=== PATIENT | female | born 1965 | race Caucasian/White ===

== ENCOUNTER 2024-04-19 08:25 | Emergency (ER) | payer OTHER, SELFPAY ==
[2024-04-19 08:29] VITALS: BP 125/77
--- NOTE | 2024-04-19 10:27 | ED.GENMED ---
History of Present Illness
General
Chief Complaint: Abdominal Pain
Source: patient
Exam Limitations: none
Time Seen by Provider: 04/19/24 10:27
Nursing documentation reviewed up to this point in time: agreed with
History of Present Illness
History of Present Illness:
58 y/oF with h/o diverticulitis previous x 1 episode treated with abx
here with mild stool changes over the past 1 week, looser, floating, nonbloody stools
and then started hving LLQ pain 3 days ago similar to previous divertic
worse with bending over an dmovement
no fever/chills/nausea/vomiting/diarrhea
no urinary sypmtoms
nothing taken for pain
Past History
Past History
ED Past Medical History: GERD and HTN
ED Past Surgical History: Gynecological
Social History
Tobacco: Non-smoker
Alcohol: None
Drug: None
Personal:
Living: with family
Phy Exam
Physical Exam
Physical Exam:
GENERAL: Alert , in no apparent distress, very comfortable and well-appearing
EYE: pupils equal and reactive
NECK: Supple
ENT: o/p clr, mmm.
CARDIAC: Regular rate and rhythm .
LUNGS: Clear breath sounds bilaterally, no acute respiratory distress, no wheezes/rales/rhonchi
ABDOMEN: Soft, mild left lower quad tendenress, no r/g, no cvat, normal bowel sounds
NEUROLOGICAL: Alert and oriented, no focal neuro deficits
SKIN: Warm and dry, skin intact.
MUSCULOSKELETAL: No edema, well perfused.
PSYCH: Normal and appropriate interaction.
Course
Orders/Labs/Results
Orders:
Orders
04/19/24 08:51
IV Insert/Care/Rem.- Treatment PRN
04/19/24 10:36
CT Abd/Pel (IV only)-DH only Urgent
Comment:
Reason For Exam: llq pain, hh/o divertic
0.9% Sodium Chloride 1000 ml [Nss] 1,000 ml IV BOLUS
04/19/24 10:58
Complete Blood Count/With Diff Urgent
Comprehensive Metabolic Panel Urgent
Lipase Urgent
04/19/24 12:13
Urinalysis Reflex To Culture Urgent
Date Specimen was Collected: 04/19/24
Time Specimen was Collected: 12:09
Abnormal Lab Results
04/19/24
10:58
Lymphocytes % 15.8 L %
(20.5-51.1)
Carbon Dioxide 31 H mmol/L
(22-30)
Glucose 103 H mg/dl
(70-99)
04/19/24 10:58
04/19/24 10:58
Vital Signs
Initial and Last Documented VS:
Initial Vital Signs
Temp Pulse Resp BP Pulse Ox
98.1 F 77 18 125/77 98
04/19/24 08:29 04/19/24 08:29 04/19/24 08:29 04/19/24 08:29 04/19/24 08:29
Last Documented Vital Signs
Temp Pulse Resp BP Pulse Ox
98.5 F 80 18 138/84 98
04/19/24 15:10 04/19/24 15:10 04/19/24 15:10 04/19/24 15:10 04/19/24 15:10
MDM/Problems Addressed
Differential Diagnosis Includes:
diverticulitis, gas pain, uti
MDM/Problems Addressed:
58 y/o F
h/o uncomplicated divertic in the past
has had some gradual stool changes x 1-2 weeks, looser
then pain 3 days ago
mild
tried clears yesterday but pain not improving
has had augmentin previously but vmoited and then doesn't like flagyl either
labs appreciated
ct scan uncopmlicated divertic
pain controlled
pt would like to go home and try augmentin again
doesn't want to do cipro/fagyl
will call if she doesn't tolerate.
*Critical Care Note
Total Time (30-74mins, 75-104mins- exclusive of procedures): Not Applicable
ED Attending Note
-
Portions of this chart may have been created with voice recognition software.� Occasional wrong word or��sound alike� substitutions may have occurred due to the inherent limitations of voice recognition software.
Discharge Plan
Departure
Patient Disposition: Home (Routine Discharge)
Date of Disposition: 04/19/24
Time of Disposition: 15:00
Patient with high blood pressure during this ER visit?: No
Condition: Fair
Covid-19: Not Applicable
Discharge Problem:
Diverticulitis
Instructions: Clear Liquid Diet, Diverticulitis (DC)
Prescriptions:
New
amoxicillin-pot clavulanate 875-125 mg tablet
1 tab PO Q12H Qty: 14 0RF
ondansetron 4 mg tablet,disintegrating
4 mg PO Q8H PRN (Reason: nausea and vomiting) 3 Days Qty: 10 0RF
No Action
omeprazole 20 MG capsule,delayed release(DR/EC)
20 mg PO PRN PRN (Reason: reflux)
famotidine 20 mg Tablet
20 mg PO PRN PRN (Reason: reflux)
triamterene-hydrochlorothiazid 37.5-25 mg Tablet
1 tab PO DAILY
Probiotic
1 cap PO DAILY
Referrals:
Nirav Rowe MD [Family Provider] - Follow up in 2-3 days
Activity Restrictions/Additional Instructions:
YOUR CAT SCAN SHOWS MILD DIVERTICULITIS
YOU SHOULD EAT A CLEAR LIQUID DIET FOR 24-48 HOURS TO GIVE YOUR BOWELS REST.
Take Augmentin twice a day for 7 days
You can take Zofran every 8 hours as needed for nausea and vomiting. If you do not tolerate this you should call your family doctor to have it switched.
YOU CAN FOLLOW UP WITH YOUR FAMILY DOCTOR WELL A GI DOCTOR
RETURN FOR: FEVER, WORSE PAIN, VOMITING, INABILITY TO TOLERATE LIQUIDS, BLOODY DIARRHEA OR ANY CONCERNS.
Interventions
Interventions:
*Risk Screen - Suicide Last Done: 04/19/24 08:29
*General Assessment Last Done: 04/19/24 08:29
*Neglect/Abuse Screening Last Done: 04/19/24 08:29
ED- Fall Risk Assessment Last Done: 04/19/24 15:11
*ED COVID-19 Vaccine History Last Done: 04/19/24 15:11
*Nursing Disposition Last Done: 04/19/24 15:11
JZ-Ibmesz-Povygtxlrn Assessment Last Done: 04/19/24 15:11
Discharge Date and Time
Discharge Date/Time: 04/19/24 15:12
Print Language: MARSHALLESE
[2024-04-19] MEDS: NSS 1000 IV (10:58)
[2024-04-19 11:14] LABS: % Basophils 0.4 % (0-2); % Eosinophils 2.1 % (0-6); % Immature Granulocytes 0.3 % (0-0.5); % Lymphocytes 15.8 % (20.5-51.1); % Monocytes 7.8 % (1.7-9.3); % Neutrophils 73.6 % (42.2-75.2); Absolute Eosinophils 0.2 10^3/uL (0-0.7); Absolute Lymphocytes 1.2 10^3/uL (1.2-3.4); Absolute Monocytes 0.6 10^3/uL (0.1-0.6); Absolute Neutrophils 5.4 10^3/uL (1.4-6.5); Hemoglobin 13.6 g/dL (12.0-16.0); Mean Corp Hgb Conc. 34.9 g/dL (33.0-37.0); Mean Corpuscular Volume 88.8 fL (81.0-99.0); Mean Platelet Volume 10.2 fL (7.4-10.4); Nucleated Red Blood Cells % 0 %; Platelet Count 173 10^3/uL (130-400); Red Blood Cell Count 4.39 10^6/uL (4.20-5.40); Red Cell Dist. Width 12.6 % (11.5-14.5); White Blood Cell Count 7.3 10^3/uL (4.8-10.8)
[2024-04-19 11:33] LABS: ALT (SGPT) 18 U/L (0-35); AST (SGOT) 30 U/L (14-36); Albumin 4.5 g/dl (3.5-5.0); Alkaline Phosphatase 91 U/L (38-126); Blood Urea Nitrogen 16 mg/dl (7-17); Calcium 9.7 mg/dl (8.4-10.2); Carbon Dioxide 31 mmol/L (22-30); Chloride 102 mmol/L (98-107); Glucose 103 mg/dl (70-99); Lipase 95 U/L (23-300); Potassium 3.9 mmol/L (3.5-5.1); Sodium 137 mmol/L (135-145); eGFR > 60.00
[2024-04-19 12:05] LABS: Total Bilirubin 0.8 mg/dl (0.2-1.3)
[2024-04-19 13:05] LABS: Urine Albumin Negative (Neg - Trace); Urine Bilirubin Negative (Negative); Urine Character Clear (Clear); Urine Color Yellow; Urine Glucose Negative (Negative); Urine Ketone Negative (Negative); Urine Leukocyte Negative (Negative); Urine Nitrite Negative (Negative); Urine Occult Blood Negative (Negative); Urine Urobilinogen Negative (Neg - 1+)
[2024-04-19 15:10] VITALS: BP 138/84
== END 2024-04-19 15:12 | disposition home or self-care (01) ==
LOC: EMR 08:25
PROVIDERS: Physician Assistant; EMERGENCY PHYSICIAN Student in an Organized Health Care Education/Training Program; FAMILY PHYSICIAN Internal Medicine
DX: K57.32 Diverticulitis of large intestine without perforation or abscess without bleeding (principal); R10.31 Right lower quadrant pain; K21.9 Gastro-esophageal reflux disease without esophagitis; I10 Essential (primary) hypertension
CPT/HCPCS: 99284; 96360; 74177; 80053; 81003; 83690; 85025; Q9967

== ENCOUNTER → 2024-07-09 17:50 | Emergency (ER) | payer OTHER, SELFPAY ==
[2024-07-09 17:55] VITALS: BP 126/78
[2024-07-09 18:17] LABS: % Basophils 0.9 % (0-2); % Eosinophils 4.3 % (0-6); % Immature Granulocytes 0.2 % (0-0.5); % Lymphocytes 38.1 % (20.5-51.1); % Neutrophils 45.5 % (42.2-75.2); Absolute Basophils 0.1 10^3/uL (0-0.2); Absolute Eosinophils 0.2 10^3/uL (0-0.7); Absolute Monocytes 0.6 10^3/uL (0.1-0.6); Absolute Neutrophils 2.4 10^3/uL (1.4-6.5); Hematocrit 39.3 % (37.0-47.0); Hemoglobin 13.4 g/dL (12.0-16.0); Mean Corp Hgb Conc. 34.1 g/dL (33.0-37.0); Mean Corpuscular Hgb 30.1 pg (27.0-31.0); Mean Corpuscular Volume 88.3 fL (81.0-99.0); Mean Platelet Volume 9.7 fL (7.4-10.4); Nucleated Red Blood Cells % 0 %; Platelet Count 175 10^3/uL (130-400); Red Blood Cell Count 4.45 10^6/uL (4.20-5.40); Red Cell Dist. Width 12.5 % (11.5-14.5); White Blood Cell Count 5.4 10^3/uL (4.8-10.8)
[2024-07-09 18:18] LABS: Urine Albumin Negative (Neg - Trace); Urine Bilirubin Negative (Negative); Urine Character Clear (Clear); Urine Color Yellow; Urine Glucose Negative (Negative); Urine Ketone Negative (Negative); Urine Leukocyte Negative (Negative); Urine Nitrite Negative (Negative); Urine Occult Blood Negative (Negative); Urine Urobilinogen Negative (Neg - 1+)
[2024-07-09 18:31] LABS: ALT (SGPT) 21 U/L (0-35); AST (SGOT) 28 U/L (14-36); Albumin 4.3 g/dl (3.5-5.0); Alkaline Phosphatase 63 U/L (38-126); Blood Urea Nitrogen 14 mg/dl (7-17); Carbon Dioxide 32 mmol/L (22-30); Chloride 101 mmol/L (98-107); Glucose 81 mg/dl (70-99); Lipase 127 U/L (23-300); Potassium 3.5 mmol/L (3.5-5.1); Sodium 142 mmol/L (135-145); Total Bilirubin 0.4 mg/dl (0.2-1.3); Total Protein 7.1 g/dl (6.3-8.2); eGFR > 60.00
[2024-07-09 20:22] VITALS: BMI 26.6
[2024-07-09] MEDS: OMNIPAQUE 50 ML PO (20:31)
[2024-07-09 20:37] VITALS: BP 141/85
--- NOTE | 2024-07-09 21:32 | ED.GENMED ---
History of Present Illness
General
Chief Complaint: Abdominal Pain
Source: patient
Time Seen by Provider: 07/09/24 21:02
History of Present Illness
History of Present Illness:
This patient is a 58-year-old female presents the emergency department with complaints of mild left lower quadrant discomfort associated with nonbloody loose stools. Symptoms started a few days ago, but got particularly worse today. She is worried
she may have diverticulitis again as these are similar symptoms to past episodes of diverticulitis. Otherwise she denies complaints. She denies fever, chills, nausea, vomiting, anorexia, chest pain, shortness of breath, back pain, urinary
symptoms, bleeding, diaphoresis, or other complaints. Pain is nonradiating, comes and goes, without specific provoking or relieving factors. She describes it is mild
Past History
Past History
ED Past Medical History: GERD and HTN
ED Past Surgical History: Gynecological
Social History
Tobacco: Non-smoker
Alcohol: None
Drug: None
Personal:
Living: with family
Phy Exam
Physical Exam
Physical Exam:
GENERAL: Alert , in no apparent distress
EYE: pupils equal and reactive
NECK: Supple, no significant adenopathy.
ENT: o/p clr, mmm.
CARDIAC: Regular rate and rhythm .
LUNGS: Clear breath sounds bilaterally, no acute respiratory distress, no wheezes/rales/rhonchi
ABDOMEN: Soft, minimal left lower quadrant tenderness, no r/g, no cvat
NEUROLOGICAL: Alert and oriented, no focal neuro deficits
SKIN: Warm and dry, skin intact.
MUSCULOSKELETAL: No edema, well perfused.
PSYCH: Normal and appropriate interaction.
Course
Orders/Labs/Results
Orders:
Orders
07/09/24 17:50
Iohexol [Omnipaque] See Protocol PO NOW STA
07/09/24 18:09
Complete Blood Count/With Diff Urgent
Comprehensive Metabolic Panel Urgent
Lipase Urgent
Urinalysis Reflex To Culture Urgent
Date Specimen was Collected: 07/09/24
Time Specimen was Collected: 17:58
07/09/24 20:32
Iohexol [Omnipaque] See Protocol PO NOW STA
07/09/24 20:33
CT Abd/pel W Iv And Oral Contr Urgent
Comment:
Reason For Exam: LLQ pain
07/09/24 21:53
LevoFLOXacin [Levaquin] 750 mg PO NOW STA
MetroNIDAZOLE [Flagyl] 500 mg PO NOW STA
Abnormal Lab Results
07/09/24
18:09
Monocytes % 11.0 H %
(1.7-9.3)
Carbon Dioxide 32 H mmol/L
(22-30)
07/09/24 18:09
07/09/24 18:09
Vital Signs
Initial and Last Documented VS:
Initial Vital Signs
Temp Pulse Resp BP Pulse Ox
97.8 F 69 16 126/78 98
07/09/24 17:55 07/09/24 17:55 07/09/24 17:55 07/09/24 17:55 07/09/24 17:55
Last Documented Vital Signs
Temp Pulse Resp BP Pulse Ox
97.7 F 68 20 141/85 98
07/09/24 20:37 07/09/24 20:37 07/09/24 20:37 07/09/24 20:37 07/09/24 20:37
*Critical Care Note
Total Time (30-74mins, 75-104mins- exclusive of procedures): Not Applicable
Update Note
Update Note:
Patient presents to the Emergency Department with ___abdominal pain
Number and Complexity of Problems Addressed at the Encounter
� Chronic conditions affecting care:
� Acute Exacerbation and/or Progression of Chronic Illness:
� Differential Diagnosis includes: But not limited to diverticulitis, abscess, colitis, nonspecific abdominal pain, kidney stone, etc. etc.
Amount and/or Complexity of Data to be Reviewed and Analyzed
� I performed an independent evaluation of and my interpretation is:
EKG:
CT:There is mild wall thickening and stranding along the sigmoid colon suggestive of mild diverticulitis.
Xrays:
Laboratory Studies: Unremarkable
Other:
� Review of other/old records reveals: Patient seen for diverticulitis April 2024, patient had knee surgery February 2023
� Clinical information was obtained by an independent historian:
� Prescriptions/Medications Considered but not given:
� Further testing considered but not performed:
Risk of Complications and/or Morbidity or Mortality of Patient Management
� Social determinants of health affecting care:
� Discussion with other providers (PCP, Hospitalists, Consultants, etc):
� Escalation of care including admission/observation vs risk of discharge considered: CT consistent with uncomplicated diverticulitis, no abscess per fever intolerance of p.o., etc. Patient candidate for outpatient management
and close follow-up. Discussed with her importance of follow-up and reasons to return to the ER.
ED Attending Note
-
Portions of this chart may have been created with voice recognition software.� Occasional wrong word or��sound alike� substitutions may have occurred due to the inherent limitations of voice recognition software.
Discharge Plan
Departure
Patient Disposition: Home (Routine Discharge)
Date of Disposition: 07/09/24
Time of Disposition: 21:49
Patient with high blood pressure during this ER visit?: Yes
Condition: Good
Discharge Problem:
Diverticulitis
Instructions: Diverticulitis (DC), BLOOD PRESSURE
Prescriptions:
New
metronidazole 500 mg tablet
500 mg PO BID 7 Days Qty: 14 0RF
levofloxacin 750 mg tablet
750 mg PO DAILY 7 Days Qty: 7 0RF
No Action
omeprazole 20 MG capsule,delayed release(DR/EC)
20 mg PO DAILY
triamterene-hydrochlorothiazid 37.5-25 mg Tablet
1 tab PO DAILY
Probiotic
1 cap PO DAILY
ondansetron 4 mg tablet,disintegrating
4 mg PO Q8H PRN (Reason: nausea and vomiting) 3 Days Qty: 10 0RF
Referrals:
Nirav Rowe MD [Family Provider] - Follow up in 2-3 days
Activity Restrictions/Additional Instructions:
IF YOU DEVELOP INCREASING NEW OR PERSISTENT PAIN, FEVER, VOMITING, GET WORSE, DO NOT GET BETTER, OR OTHER WORRISOME SIGNS, PLEASE RETURN TO THE ER IMMEDIATELY.
Interventions
Interventions:
*Risk Screen - Suicide Last Done: 07/09/24 17:55
*General Assessment Last Done: 07/09/24 17:55
*Neglect/Abuse Screening Last Done: 07/09/24 17:55
ED- Fall Risk Assessment Last Done: 07/09/24 20:22
*ED COVID-19 Vaccine History Last Done: 07/09/24 20:22
JR-Vlazmv-Xdaibukwij Assessment Last Done: 07/09/24 20:22
Discharge Date and Time
Print Language: LAO
[2024-07-09 22:00] VITALS: BP 131/82
[2024-07-09] MEDS: FLAGYL 500 MG PO (22:07)
[2024-07-09] MEDS: LEVAQUIN 750 MG PO (22:07)
== END | disposition home or self-care (01) ==
LOC: EMR 17:50
PROVIDERS: Emergency Medicine; EMERGENCY PHYSICIAN Emergency Medicine; FAMILY PHYSICIAN Internal Medicine
DX: K57.32 Diverticulitis of large intestine without perforation or abscess without bleeding (principal); I10 Essential (primary) hypertension; K21.9 Gastro-esophageal reflux disease without esophagitis
CPT/HCPCS: 99284; 74177; 80053; 81003; 83690; 85025; Q9967